=== PATIENT | female | born 1950 | race Caucasian/White ===

== ENCOUNTER 2022-01-21 03:29 | Inpatient (IN) | payer MEDICARE, OTHER ==
[~2022-01-21] VITALS: Ht 160 cm; Wt 90.7 kg
[2022-01-21] MEDS ORDERED: methylPREDNISolone SOD SUCC 125 MG/2 ML VL IV ONE (03:45)
[2022-01-21] MEDS ORDERED: TERBUTALINE SULFATE 1 MG/ML 1ML VIAL SC ONE (03:45)
[2022-01-21] MEDS ORDERED: ALBUTEROL SULF 2.5 MG/0.5ML(0.5%) NEB SOLN NEB ONE ×2 (03:45)
[2022-01-21] MEDS ORDERED: IPRATROPIUM BROM 0.5 MG/2.5ML INH SOL NEB ONE ×2 (03:45)
[2022-01-21] MEDS ORDERED: dilTIAZem 25 MG/5 ML VIAL IV ONE ×2 (03:48→04:00)
[2022-01-21] MEDS: MAGNESIUM SULFATE 1GM/100ML 100 ML IV SCH ×2 (03:55→04:54)
[2022-01-21] MEDS ORDERED: ADENOSINE 6 MG/2 ML INJ IV ONE ×3 (03:59→04:15)
[2022-01-21 04:04] LABS: Basophils # (auto) 0.1 10 ^3/uL (0-0.2); Eosinophils # (auto) 0.5 10 ^3/uL (0-0.8); Monocytes # (auto) 0.6 10 ^3/uL (0-1.3)
[2022-01-21] MEDS ORDERED: MIDAZOLAM HCL 2MG/2ML 2ml VIAL (1mg/ml) ONE (04:07)
[2022-01-21 04:08] LABS: Basophils % (auto) 1.4 % (0.0-2.0); Hematocrit 39.5 % (36.0-46.0); Hemoglobin 12.6 g/dL (12.2-16.2); Lymphocytes # (auto) 0.8 10 ^3/uL (0.4-5.4); Lymphocytes % (auto) 12.3 % (10.0-50.0); Mean Corpuscular Hemoglobin 24.3 pg (28.0-32.0); Mean Corpuscular Hgb Conc. 31.8 g/dL (32.0-36.0); Mean Corpuscular Volume 76.4 fL (80.0-100.0); Monocytes % (auto) 9.4 % (0.0-12.0); Neutrophils # (auto) 4.5 10 ^3/uL (1.6-8.6); Neutrophils % (auto) 68.9 % (37.0-80.0); Red Blood Cells 5.17 10^6/uL (4.0-5.20); Red Cell Distribution Width 18.1 % (11.8-14.3); White Blood Cell 6.5 10^3/uL (4.4-10.8)
[2022-01-21] MEDS ORDERED: AMIODARONE HCL (50 MG/ ML) 3 ML VIAL IV ONE ×2 (04:14→04:30)
[2022-01-21] MEDS ORDERED: MIDAZOLAM HCL 2MG/2ML 2ml VIAL (1mg/ml) IV ONE (04:15)
[2022-01-21 04:21] LABS: Albumin 3.7 g/dL (3.4-5.0); Potassium 3.8 mmol/L (3.5-5.1)
[2022-01-21 04:24] LABS: Bilirubin, Total 0.5 mg/dL (0.2-1.0); Total Protein 7.3 g/dL (6.4-8.2)
[2022-01-21] MEDS ORDERED: AMIODARONE HCL 150 MG in D5W 5% 100 ML IV ONE ×2 (04:30→04:45)
[2022-01-21] MEDS ORDERED: AMIODARONE 450mg/250ml AE 250 ML IV SCH (04:45)
[2022-01-21] MEDS ORDERED: IPRATROPIUM BROM 0.5 MG/2.5ML INH SOL NEB PRN (09:15)
[2022-01-21] MEDS ORDERED: ALBUTEROL SULF 2.5 MG/0.5ML(0.5%) NEB SOLN NEB PRN (09:15)
[2022-01-21] MEDS ORDERED: ENOXAPARIN SOD 100 MG/1 ML SYRINGE SC ONE (09:15)
[2022-01-21] MEDS ORDERED: SODIUM CHLORIDE 0.9% 500 ML IV ONE (09:15)
[2022-01-21] MEDS ORDERED: TADA20TA50 PO (09:25)
[2022-01-21] MEDS ORDERED: NITROGLYCERIN 0.4 MG SL TAB SL PRN (09:30)
[2022-01-21] MEDS ORDERED: MORPHINE SULFATE INJ 2 MG/ml SYRG IV PRN ×2 (09:30)
[2022-01-21] MEDS ORDERED: ACETAMINOPHEN 325 MG TAB PO PRN (09:30)
[2022-01-21] MEDS ORDERED: ENOXAPARIN SOD 80 MG/0.8ML SYRINGE SC ONE (10:15)
[2022-01-21] MEDS: methylPREDNISolone SOD SUCC 125 MG/2 ML VL IV SCH ×2 (10:32→22:32)
[2022-01-21] MEDS: AZITHROMYCIN 500MG/ 250ML 250 ML IV SCH (10:33)
[2022-01-21] MEDS: SODIUM CHLORIDE 0.9% 1,000 ML IV SCH ×3 (10:34→23:45)
[2022-01-21 10:51] LABS: Cholesterol 203 mg/dL (< 200); HDL Cholesterol 119 mg/dL (40-59); LDL Cholesterol 81 mg/dL (< 100); Triglycerides 64 mg/dL (< 150)
[2022-01-21 10:58] VITALS: BP 118/70
[2022-01-21] MEDS: ALBUTEROL SULF 2.5 MG/0.5ML(0.5%) NEB SOLN NEB SCH ×2 (13:07→18:50)
[2022-01-21] MEDS: IPRATROPIUM BROM 0.5 MG/2.5ML INH SOL NEB SCH ×2 (13:08→18:50)
[2022-01-21 22:00] VITALS: BP 143/61
[2022-01-21] MEDS: CARVEDILOL 3.125 MG TAB PO SCH (22:33)
[2022-01-21] MEDS: ENOXAPARIN SOD 100 MG/1 ML SYRINGE SC SCH (22:39)
[2022-01-21 23:29] VITALS: BP 143/61
[2022-01-21] MEDS ORDERED: FURO40TA4 PO (23:41)
[2022-01-21] MEDS ORDERED: ASPI1TAB20 PO (23:41)
[2022-01-21] MEDS ORDERED: POTA10TA32 PO (23:41)
[2022-01-22] MEDS ORDERED: AMIODARONE 450mg/250ml AE 250 ML IV SCH (00:30)
[2022-01-22] MEDS: IPRATROPIUM BROM 0.5 MG/2.5ML INH SOL NEB SCH ×5 (02:48→22:42)
[2022-01-22] MEDS: ALBUTEROL SULF 2.5 MG/0.5ML(0.5%) NEB SOLN NEB SCH ×5 (02:48→22:42)
[2022-01-22 05:00] VITALS: BP 156/76
[2022-01-22 07:30] LABS: Basophils # (auto) 0 10 ^3/uL (0-0.2); Basophils % (auto) 0.2 % (0.0-2.0); Eosinophils # (auto) 0 10 ^3/uL (0-0.8); Hemoglobin 12.6 g/dL (12.2-16.2); Mean Corpuscular Volume 77.2 fL (80.0-100.0); Neutrophils # (auto) 16.3 10 ^3/uL (1.6-8.6); Nucleated Red Blood Cells % 0.1 %
[2022-01-22 07:33] LABS: Hematocrit 40.9 % (36.0-46.0); Lymphocytes # (auto) 0.8 10 ^3/uL (0.4-5.4); Lymphocytes % (auto) 4.6 % (10.0-50.0); Mean Corpuscular Hemoglobin 23.8 pg (28.0-32.0); Mean Corpuscular Hgb Conc. 30.9 g/dL (32.0-36.0); Monocytes # (auto) 0.9 10 ^3/uL (0-1.3); Monocytes % (auto) 4.9 % (0.0-12.0); Neutrophils % (auto) 90.3 % (37.0-80.0); Red Cell Distribution Width 18.5 % (11.8-14.3); White Blood Cell 18.1 10^3/uL (4.4-10.8)
[2022-01-22 08:07] LABS: Calcium 9.8 mg/dL (8.5-10.1)
[2022-01-22 09:00] VITALS: BP 144/66
[2022-01-22] MEDS ORDERED: AMIODARONE HCL 200 MG TAB PO SCH (10:00)
[2022-01-22] MEDS: AZITHROMYCIN 500MG/ 250ML 250 ML IV SCH (10:40)
[2022-01-22] MEDS: ENOXAPARIN SOD 100 MG/1 ML SYRINGE SC SCH ×2 (10:41→21:48)
[2022-01-22] MEDS: methylPREDNISolone SOD SUCC 125 MG/2 ML VL IV SCH ×2 (10:41→21:55)
[2022-01-22] MEDS: CARVEDILOL 3.125 MG TAB PO SCH ×2 (10:42→21:49)
[2022-01-22] MEDS: TADALAFIL 20 MG PO SCH (10:42)
[2022-01-22] MEDS ORDERED: IPRATROPIUM BROM 0.5 MG/2.5ML INH SOL NEB PRN (11:15)
[2022-01-22] MEDS ORDERED: ALBUTEROL SULF 2.5 MG/0.5ML(0.5%) NEB SOLN NEB PRN (11:15)
[2022-01-22] MEDS: AMIODARONE HCL 200 MG TAB PO SCH ×2 (12:06→21:49)
[2022-01-22 13:00] VITALS: BP 178/68
[2022-01-22] MEDS ORDERED: ALBUTEROL SULF HFA 90MCG INH 200DOSE IN SCH (14:00)
[2022-01-22] MEDS: SODIUM CHLORIDE 0.9% 1,000 ML IV SCH (15:15)
[2022-01-22 17:00] VITALS: BP 171/87
[2022-01-22] MEDS: hydrALAZINE HCL 20 MG/ML VL IV PRN (17:40)
[2022-01-22 22:00] VITALS: BP 100/79
[2022-01-23] VITALS (7 sets, daily range): BP systolic 102–156; BP diastolic 60–87
[2022-01-23] MEDS: SODIUM CHLORIDE 0.9% 1,000 ML IV SCH ×3 (01:35→22:11)
[2022-01-23] MEDS: IPRATROPIUM BROM 0.5 MG/2.5ML INH SOL NEB SCH ×6 (02:05→22:16)
[2022-01-23] MEDS: ALBUTEROL SULF 2.5 MG/0.5ML(0.5%) NEB SOLN NEB SCH ×6 (02:05→22:16)
[2022-01-23] MEDS: TADALAFIL 20 MG PO SCH (10:00)
[2022-01-23] MEDS: AZITHROMYCIN 500MG/ 250ML 250 ML IV SCH (10:27)
[2022-01-23] MEDS: methylPREDNISolone SOD SUCC 125 MG/2 ML VL IV SCH ×2 (10:30→22:08)
[2022-01-23] MEDS: AMIODARONE HCL 200 MG TAB PO SCH ×2 (10:30→22:10)
[2022-01-23] MEDS: CARVEDILOL 3.125 MG TAB PO SCH ×2 (10:32→22:09)
[2022-01-23] MEDS: ENOXAPARIN SOD 100 MG/1 ML SYRINGE SC SCH ×2 (10:33→22:08)
[2022-01-23] MEDS ORDERED: GADOTERATE MEG 10 MMOL/20ml INJ (0.5MMOL/ml) IV ONE (10:55)
[2022-01-23] MEDS ORDERED: ALPRAZolam 0.25 MG TAB PO SCH (14:00)
[2022-01-23] MEDS: BUDESONIDE (INHALATION) 0.5 MG/2 ML NEB NEB SCH (18:55)
[2022-01-23] MEDS: ALPRAZolam 0.25 MG TAB PO PRN (22:09)
[2022-01-24] VITALS (8 sets, daily range): BP systolic 129–152; BP diastolic 58–86
[2022-01-24] MEDS: IPRATROPIUM BROM 0.5 MG/2.5ML INH SOL NEB SCH ×6 (01:35→22:00)
[2022-01-24] MEDS: ALBUTEROL SULF 2.5 MG/0.5ML(0.5%) NEB SOLN NEB SCH ×6 (01:35→21:59)
[2022-01-24] MEDS: BUDESONIDE (INHALATION) 0.5 MG/2 ML NEB NEB SCH ×2 (06:19→22:00)
[2022-01-24] MEDS: methylPREDNISolone SOD SUCC 125 MG/2 ML VL IV SCH ×2 (09:50→21:11)
[2022-01-24] MEDS: AZITHROMYCIN 500MG/ 250ML 250 ML IV SCH (09:51)
[2022-01-24] MEDS: TADALAFIL 20 MG PO SCH (09:51)
[2022-01-24] MEDS: AMIODARONE HCL 200 MG TAB PO SCH ×2 (09:52→21:12)
[2022-01-24] MEDS: CARVEDILOL 3.125 MG TAB PO SCH ×2 (09:53→21:12)
[2022-01-24] MEDS: ENOXAPARIN SOD 100 MG/1 ML SYRINGE SC SCH ×2 (09:53→21:11)
[2022-01-24] MEDS: ALPRAZolam 0.25 MG TAB PO PRN ×2 (09:54→21:35)
[2022-01-24] MEDS: hydrALAZINE HCL 20 MG/ML VL IV PRN (09:54)
[2022-01-24 12:29] LABS: Basophils # (auto) 0 10 ^3/uL (0-0.2); Eosinophils # (auto) 0 10 ^3/uL (0-0.8); Hematocrit 39.7 % (36.0-46.0); Hemoglobin 12.5 g/dL (12.2-16.2); Lymphocytes % (auto) 7.6 % (10.0-50.0); Mean Corpuscular Hemoglobin 24.2 pg (28.0-32.0); Mean Corpuscular Hgb Conc. 31.4 g/dL (32.0-36.0); Mean Corpuscular Volume 77.2 fL (80.0-100.0); Monocytes # (auto) 0.7 10 ^3/uL (0-1.3); Monocytes % (auto) 5.4 % (0.0-12.0); Neutrophils # (auto) 11.2 10 ^3/uL (1.6-8.6); Nucleated Red Blood Cells % 0.1 %; Red Blood Cells 5.14 10^6/uL (4.0-5.20); Red Cell Distribution Width 18.3 % (11.8-14.3); White Blood Cell 12.9 10^3/uL (4.4-10.8)
[2022-01-24 12:42] LABS: BUN/Creatinine Ratio 32.5; Calcium 9.4 mg/dL (8.5-10.1); Potassium 4.8 mmol/L (3.5-5.1)
[2022-01-24] MEDS: SODIUM CHLORIDE 0.9% 1,000 ML IV SCH (14:15)
[2022-01-25] VITALS (7 sets, daily range): BP systolic 140–154; BP diastolic 60–96
[2022-01-25] MEDS ORDERED: METOPROLOL TARTRATE 1MG/1ML-5ML VIAL IV PRN ×2 (01:15→11:45)
[2022-01-25] MEDS: ALBUTEROL SULF 2.5 MG/0.5ML(0.5%) NEB SOLN NEB SCH ×6 (02:14→22:11)
[2022-01-25] MEDS: IPRATROPIUM BROM 0.5 MG/2.5ML INH SOL NEB SCH ×6 (02:14→22:11)
[2022-01-25] MEDS: guaiFENesin-DM 100/10mg/5ml SYR PO PRN ×2 (04:14→12:57)
[2022-01-25] MEDS: SODIUM CHLORIDE 0.9% 1,000 ML IV SCH (04:15)
[2022-01-25 05:53] LABS: Basophils # (auto) 0 10 ^3/uL (0-0.2); Eosinophils # (auto) 0 10 ^3/uL (0-0.8); Hemoglobin 12.7 g/dL (12.2-16.2); Lymphocytes # (auto) 0.9 10 ^3/uL (0.4-5.4); Monocytes # (auto) 0.6 10 ^3/uL (0-1.3)
[2022-01-25 05:56] LABS: Basophils % (auto) 0.1 % (0.0-2.0); Hematocrit 40.8 % (36.0-46.0); Lymphocytes % (auto) 8.8 % (10.0-50.0); Mean Corpuscular Hemoglobin 24.1 pg (28.0-32.0); Mean Corpuscular Hgb Conc. 31.2 g/dL (32.0-36.0); Monocytes % (auto) 5.6 % (0.0-12.0); Neutrophils # (auto) 8.7 10 ^3/uL (1.6-8.6); Neutrophils % (auto) 85.5 % (37.0-80.0); Red Cell Distribution Width 18.3 % (11.8-14.3); White Blood Cell 10.1 10^3/uL (4.4-10.8)
[2022-01-25 06:01] LABS: INR 1.03 (0.9-1.15); Partial Thromboplastin Time 37.1 sec (24.6-33.4)
[2022-01-25 06:14] LABS: Calcium 9.6 mg/dL (8.5-10.1); Potassium 4.7 mmol/L (3.5-5.1)
[2022-01-25 06:17] LABS: BUN/Creatinine Ratio 29.9
[2022-01-25] MEDS: BUDESONIDE (INHALATION) 0.5 MG/2 ML NEB NEB SCH ×2 (07:01→18:32)
[2022-01-25] MEDS: TADALAFIL 20 MG PO SCH (10:00)
[2022-01-25] MEDS: methylPREDNISolone SOD SUCC 125 MG/2 ML VL IV SCH ×2 (12:47→22:18)
[2022-01-25] MEDS: AZITHROMYCIN 500MG/ 250ML 250 ML IV SCH (12:48)
[2022-01-25] MEDS: AMIODARONE HCL 200 MG TAB PO SCH (12:48)
[2022-01-25] MEDS: CARVEDILOL 3.125 MG TAB PO SCH ×2 (12:52→22:18)
[2022-01-25] MEDS: ENOXAPARIN SOD 100 MG/1 ML SYRINGE SC SCH ×2 (13:07→22:18)
[2022-01-25 13:44] LABS: Basophils # (auto) 0 10 ^3/uL (0-0.2); Basophils % (auto) 0.3 % (0.0-2.0); Eosinophils # (auto) 0 10 ^3/uL (0-0.8); Eosinophils % (auto) 0.1 % (0.0-7.0); Hematocrit 40.2 % (36.0-46.0); Hemoglobin 12.5 g/dL (12.2-16.2); Lymphocytes # (auto) 1.4 10 ^3/uL (0.4-5.4); Lymphocytes % (auto) 13.9 % (10.0-50.0); Mean Corpuscular Volume 77.4 fL (80.0-100.0); Monocytes # (auto) 0.9 10 ^3/uL (0-1.3); Monocytes % (auto) 9.3 % (0.0-12.0); Neutrophils # (auto) 7.7 10 ^3/uL (1.6-8.6); Neutrophils % (auto) 76.4 % (37.0-80.0); Nucleated Red Blood Cells % 0.1 %; Red Cell Distribution Width 18.3 % (11.8-14.3); White Blood Cell 10.1 10^3/uL (4.4-10.8)
[2022-01-25 14:15] LABS: Albumin 2.8 g/dL (3.4-5.0); Calcium 9.2 mg/dL (8.5-10.1); Potassium 4.2 mmol/L (3.5-5.1)
[2022-01-25 14:17] LABS: BUN/Creatinine Ratio 24.6
[2022-01-25 15:13] LABS: Bilirubin, Total 0.4 mg/dL (0.2-1.0); Total Protein 6.2 g/dL (6.4-8.2)
[2022-01-25] MEDS: ALPRAZolam 0.25 MG TAB PO PRN (15:28)
[2022-01-25] MEDS ORDERED: AMIODARONE 450mg/250ml AE 250 ML IV SCH (16:45)
[2022-01-25] MEDS ORDERED: AMIODARONE HCL 150 MG in D5W 5% 100 ML IV ONE (16:45)
[2022-01-26] MEDS: AMIODARONE 450mg/250ml AE 250 ML IV SCH ×2 (01:35→05:28)
[2022-01-26] MEDS: ALBUTEROL SULF 2.5 MG/0.5ML(0.5%) NEB SOLN NEB SCH ×4 (02:13→19:12)
[2022-01-26] MEDS: IPRATROPIUM BROM 0.5 MG/2.5ML INH SOL NEB SCH ×4 (02:13→19:12)
[2022-01-26 04:31] VITALS: BP 144/71
[2022-01-26 06:39] LABS: Basophils # (auto) 0 10 ^3/uL (0-0.2); Eosinophils # (auto) 0 10 ^3/uL (0-0.8); Lymphocytes # (auto) 1.1 10 ^3/uL (0.4-5.4); Monocytes # (auto) 0.4 10 ^3/uL (0-1.3); Monocytes % (auto) 4.8 % (0.0-12.0); Neutrophils % (auto) 83.2 % (37.0-80.0)
[2022-01-26 06:42] LABS: Basophils % (auto) 0.1 % (0.0-2.0); Hematocrit 38.8 % (36.0-46.0); Hemoglobin 12.4 g/dL (12.2-16.2); Lymphocytes % (auto) 11.9 % (10.0-50.0); Mean Corpuscular Hemoglobin 24.7 pg (28.0-32.0); Mean Corpuscular Volume 77.1 fL (80.0-100.0); Neutrophils # (auto) 7.5 10 ^3/uL (1.6-8.6); Nucleated Red Blood Cells % 0.1 %; Red Blood Cells 5.03 10^6/uL (4.0-5.20); Red Cell Distribution Width 18.3 % (11.8-14.3)
[2022-01-26 07:11] LABS: Albumin 2.9 g/dL (3.4-5.0); BUN/Creatinine Ratio 29.1; Calcium 9.2 mg/dL (8.5-10.1); Magnesium 2.4 mg/dL (1.6-2.6); Potassium 5.3 mmol/L (3.5-5.1)
[2022-01-26] MEDS: BUDESONIDE (INHALATION) 0.5 MG/2 ML NEB NEB SCH ×2 (07:15→19:13)
[2022-01-26 07:17] LABS: Bilirubin, Total 0.4 mg/dL (0.2-1.0); Total Protein 6.2 g/dL (6.4-8.2)
[2022-01-26 08:00] VITALS: BP 148/81
[2022-01-26 09:00] VITALS: BP 150/77
[2022-01-26] MEDS: TADALAFIL 20 MG PO SCH (10:00)
[2022-01-26] MEDS: methylPREDNISolone SOD SUCC 125 MG/2 ML VL IV SCH ×2 (10:34→23:17)
[2022-01-26] MEDS: AZITHROMYCIN 500MG/ 250ML 250 ML IV SCH (10:34)
[2022-01-26] MEDS: ENOXAPARIN SOD 100 MG/1 ML SYRINGE SC SCH ×2 (10:49→23:17)
[2022-01-26] MEDS: CARVEDILOL 3.125 MG TAB PO SCH ×3 (10:49→23:19)
[2022-01-26 13:00] VITALS: BP 127/76
[2022-01-26] MEDS: guaiFENesin-DM 100/10mg/5ml SYR PO PRN (16:25)
[2022-01-26 17:00] VITALS: BP 145/69
[2022-01-26] MEDS: BUMETANIDE 2.5mg/10ml (0.25 mg/ml) INJ IV SCH (18:29)
[2022-01-26] MEDS: HYDROcodone-ACET 5/325MG TAB PO PRN ×2 (18:35→23:18)
[2022-01-26 19:27] LABS: Albumin 2.7 g/dL (3.4-5.0); BUN/Creatinine Ratio 27.6; Bilirubin, Total 0.4 mg/dL (0.2-1.0); Calcium 8.9 mg/dL (8.5-10.1); Potassium 4.9 mmol/L (3.5-5.1)
[2022-01-26 22:00] VITALS: BP 106/62
[2022-01-26] MEDS: SILDENAFIL CITRATE 20 MG TAB PO SCH (22:00)
[2022-01-26] MEDS: AMIODARONE HCL 200 MG TAB PO SCH (23:45)
[2022-01-27] MEDS: ALBUTEROL SULF 2.5 MG/0.5ML(0.5%) NEB SOLN NEB SCH ×2 (00:13→06:00)
[2022-01-27] MEDS: IPRATROPIUM BROM 0.5 MG/2.5ML INH SOL NEB SCH ×2 (00:13→06:01)
[2022-01-27] MEDS: HYDROcodone-ACET 5/325MG TAB PO PRN (03:14)
[2022-01-27 04:45] VITALS: BP 89/51
[2022-01-27 05:00] VITALS: BP 72/51
[2022-01-27] MEDS ORDERED: SODIUM CHLORIDE 0.9% 250 ML IV ONE (05:00)
[2022-01-27] MEDS: BUMETANIDE 2.5mg/10ml (0.25 mg/ml) INJ IV SCH (06:00)
[2022-01-27 06:12] LABS: BUN/Creatinine Ratio 24.4; Calcium 8.6 mg/dL (8.5-10.1)
[2022-01-27] MEDS ORDERED: ALPRAZolam 0.5 MG TAB PO SCH (07:00)
[2022-01-27 07:21] LABS: Hematocrit 29.4 % (36.0-46.0)
[2022-01-27 07:23] LABS: Hemoglobin 9.3 g/dL (12.2-16.2); Mean Corpuscular Hemoglobin 24.5 pg (28.0-32.0); Mean Corpuscular Hgb Conc. 31.8 g/dL (32.0-36.0); Mean Corpuscular Volume 77.2 fL (80.0-100.0); Red Cell Distribution Width 17.8 % (11.8-14.3)
[2022-01-27 07:27] LABS: Basophils % (manual) 0 (0.0-2.0); Blast Cells 0; Eosinophils % (manual) 0 (0-7); Metamyelocytes % 0; Myelocytes % 0; Promyelocytes % 0; Reactive Lymphocytes 0
[2022-01-27] MEDS: SILDENAFIL CITRATE 20 MG TAB PO SCH (08:27)
[2022-01-27] MEDS: CARVEDILOL 3.125 MG TAB PO SCH (08:27)
[2022-01-27] MEDS: AMIODARONE HCL 200 MG TAB PO SCH ×3 (08:28→08:42)
[2022-01-27] MEDS: AZITHROMYCIN 500MG/ 250ML 250 ML IV SCH (08:37)
[2022-01-27] MEDS: methylPREDNISolone SOD SUCC 125 MG/2 ML VL IV SCH (08:38)
[2022-01-27] MEDS ORDERED: oxyCODONE HCL 5MG TAB PO PRN (08:45)
[2022-01-27] MEDS ORDERED: MAGNESIUM CITRATE SOLUTION 300 ML BTL PO ONE (08:45)
[2022-01-27 09:00] VITALS: BP 103/37
[2022-01-27 09:09] LABS: Hematocrit 29.5 % (36.0-46.0); Hemoglobin 9.2 g/dL (12.2-16.2); Mean Corpuscular Hemoglobin 24.2 pg (28.0-32.0); Mean Corpuscular Hgb Conc. 31.4 g/dL (32.0-36.0); Mean Corpuscular Volume 77.1 fL (80.0-100.0); Red Blood Cells 3.82 10^6/uL (4.0-5.20); Red Cell Distribution Width 17.9 % (11.8-14.3)
[2022-01-27 09:22] LABS: Basophils % (manual) 0 (0.0-2.0); Blast Cells 0; Eosinophils % (manual) 0 (0-7); Metamyelocytes % 0; Myelocytes % 0; Promyelocytes % 0; Reactive Lymphocytes 0
[2022-01-27 09:51] VITALS: BP 103/67
[2022-01-27] MEDS ORDERED: methylPREDNISolone SOD SUCC 125 MG/2 ML VL IV SCH (10:00)
[2022-01-27] MEDS ORDERED: FLEET ENEMA(ADULT) 135 ML PR ONE (10:15)
[2022-01-27] MEDS ORDERED: oxyCODONE ER 10 MG TAB PO SCH (11:57)
[2022-01-27 12:10] LABS: Band Neutrophils % (manual) 16; Lymphocytes % (manual) 16 (10.0-50.0); Monocytes % (manual) 4 (0-12)
[2022-01-27 12:15] VITALS: BP 67/35
[2022-01-27 12:28] LABS: Band Neutrophils % (manual) 16; Lymphocytes % (manual) 16 (10.0-50.0); Monocytes % (manual) 4 (0-12)
[2022-01-27] MEDS ORDERED: SODIUM BICARBONATE 8.4% INJ 50ML SYRINGE ONE (13:12)
[2022-01-27] MEDS ORDERED: SODIUM BICARBONATE 8.4% INJ 50ML SYRINGE IV ONE (13:42)
[2022-01-27] MEDS ORDERED: EPINEPHrine HCL 1 MG/10 ML SYRG IV ONE (13:42)
[2022-01-27] MEDS ORDERED: SENNA 8.6 MG TAB PO SCH (22:00)
== END 2022-01-27 19:35 | DRG 193 ==
LOC: EDBD 03:29 → ER 03:29 → TELE 09:23 → TELE-WESTW 21:42
PROVIDERS: ADMIT Registered Nurse; ATTEND Internal Medicine
PROC: 5A09357 Assistance with Respiratory Ventilation, Less than 24 Consecutive Hours, Continuous Positive Airway Pressure (ICD-10-PCS; principal; 2022-01-23)
PROC: 5A09357 Assistance with Respiratory Ventilation, Less than 24 Consecutive Hours, Continuous Positive Airway Pressure (ICD-10-PCS; 2022-01-24)
PROC: 5A09357 Assistance with Respiratory Ventilation, Less than 24 Consecutive Hours, Continuous Positive Airway Pressure (ICD-10-PCS; 2022-01-25)
PROC: 5A09357 Assistance with Respiratory Ventilation, Less than 24 Consecutive Hours, Continuous Positive Airway Pressure (ICD-10-PCS; 2022-01-26)
PROC: 5A09357 Assistance with Respiratory Ventilation, Less than 24 Consecutive Hours, Continuous Positive Airway Pressure (ICD-10-PCS; 2022-01-27)
PROC: 5A12012 Performance of Cardiac Output, Single, Manual (ICD-10-PCS; 2022-01-27)
DX: J18.9 Pneumonia, unspecified organism (principal); J96.21 Acute and chronic respiratory failure with hypoxia; N17.0 Acute kidney failure with tubular necrosis; J44.1 Chronic obstructive pulmonary disease with (acute) exacerbation; I47.1 Supraventricular tachycardia; I50.32 Chronic diastolic (congestive) heart failure; J98.11 Atelectasis; J44.0 Chronic obstructive pulmonary disease with (acute) lower respiratory infection; I46.9 Cardiac arrest, cause unspecified; I48.0 Paroxysmal atrial fibrillation; E66.9 Obesity, unspecified; Z68.37 Body mass index [BMI] 37.0-37.9, adult; N28.89 Other specified disorders of kidney and ureter; F41.9 Anxiety disorder, unspecified; I27.20 Pulmonary hypertension, unspecified; Z20.822 Contact with and (suspected) exposure to COVID-19; I11.0 Hypertensive heart disease with heart failure; Z79.82 Long term (current) use of aspirin; Z79.899 Other long term (current) drug therapy; Z85.528 Personal history of other malignant neoplasm of kidney; Z87.891 Personal history of nicotine dependence; Z90.5 Acquired absence of kidney; Z91.199 Patient's noncompliance with other medical treatment and regimen due to unspecified reason
CPT/HCPCS: 36415; 36600; 71045; 71275; 74176; 74183; 80048; 80053; 80061; 82805; 82962; 83036; 83735; 83880; 84443; 84484; 85007; 85025; 85027; 85610; 85730; 86850; 86900; 86901; 87426; 87804; 92950; 92960; 93005; 93306; 94640; 94660; 96365; 96375; 97163; 99291; G0378; J0153; J2250; J7060